=== PATIENT | male | born 1970 | race Caucasian/White ===

== ENCOUNTER 2020-03-24 03:30 | Emergency (ER) | payer BC, OTHER ==
[2020-03-24 03:36] VITALS: BP 123/79; PULSE 92
--- NOTE | 2020-03-24 04:06 | EDM.PDOC ---
ED HPI GENERAL MEDICAL PROBLEM - General Chief Complaint: General Stated Complaint: NEEDS BLOOD WORK; SEIZURE? Time Seen by Provider: 03/24/20 03:35 Source of Information: Reports: Patient, Family History Limitations: Reports: No Limitations - History of Present Illness INITIAL COMMENTS - FREE TEXT/NARRATIVE: ED ambulatory with report of seizure during sleep woke "coughing up blood. EMS called. Patient elected to come by private vehicle. No prior seizure hx. described generalized shaking. No incontinence. Seen in clinic last week diagnosed with Vertigo. No labs or imaging done at that time. no recent fever chills. No Balance difficulties, Denied any change in vision. No headaches. No weakness. some dizziness while at work for past couple weeks denied injury . denied use of alcohol or other drugs. No home medications. - Related Data Allergies Allergy/AdvReac Type Severity Reaction Status Date / Time No Known Allergies Allergy Verified 03/24/20 03:36 Home Meds: Home Meds Acetaminophen [Tylenol] 650 mg PO ATDISCHARGE PRN 10/16/16 [History] Past Medical History - Past Health History Medical/Surgical History: Denies Medical/Surgical History HEENT History: Reports: None Cardiovascular History: Reports: None Respiratory History: Reports: None Gastrointestinal History: Reports: None Genitourinary History: Reports: None Musculoskeletal History: Reports: None Neurological History: Reports: None Psychiatric History: Reports: None Endocrine/Metabolic History: Reports: None Hematologic History: Reports: None Immunologic History: Reports: None Oncologic (Cancer) History: Reports: None Dermatologic History: Reports: None - Infectious Disease History Infectious Disease History: Reports: Chicken Pox - Past Surgical History Head Surgeries/Procedures: Reports: None Social & Family History - Family History Family Medical History: Noncontributory - Tobacco Use Smoking Status *Q: Current Every Day Smoker Years of Tobacco use: 27 Packs/Tins Daily: 0.5 - Caffeine Use Caffeine Use: Reports: None - Recreational Drug Use Recreational Drug Use: No - Living Situation & Occupation Occupation: Employed ED ROS GENERAL - Review of Systems Review Of Systems: Comprehensive ROS is negative, except as noted in HPI. ED EXAM, GENERAL - Physical Exam Exam: See Below Exam Limited By: No Limitations General Appearance: Alert, No Apparent Distress Eye Exam: Bilateral Eye: EOMI, PERRL (4mm) Ears: Normal External Exam, Normal TMs Nose: Normal Inspection Throat/Mouth: Other (bite cuts to right mid tounge) Head: Atraumatic, Normocephalic Neck: Normal Inspection, Full Range of Motion. No: Lymphadenopathy (L), Lymphadenopathy (R) Respiratory/Chest: No Respiratory Distress, Lungs Clear, Normal Breath Sounds Cardiovascular: Normal Peripheral Pulses, Regular Rate, Rhythm, No Edema, No Murmur GI/Abdominal: Normal Bowel Sounds, Soft, Non-Tender Back Exam: Full Range of Motion Neurological: Alert, Oriented, CN II-XII Intact, Normal Gait, Normal Reflexes, No Motor/Sensory Deficits, Other (finger nose intact. no tremor, questioned for 's phone number, stated does not know just uses contact in phone. Initially gave first 's name but rapidly corrected himself. ). No: Sensory/Motor Deficit Psychiatric: Normal Affect, Normal Mood Skin Exam: Warm, Dry, Intact, Normal Color EKG INTERPRETATION Rhythm: NSR Course - Vital Signs Last Recorded V/S: Last Vital Signs Temp 97.4 F 03/24/20 03:33 Pulse 92 03/24/20 03:33 Resp 18 03/24/20 03:33 BP 123/79 03/24/20 03:33 Pulse Ox 97 03/24/20 03:33 - Orders/Labs/Meds Labs: Laboratory Tests 03/24/20 03/24/20 03/24/20 Range/Units 03:44 03:44 03:44 WBC 8.8 (5.0-10.0) 10^3/uL RBC 5.20 (4.6-6.2) 10^6/uL Hgb 15.5 (14.0-18.0) g/dL Hct 44.8 (40.0-54.0) % MCV 86.2 D (80-100) fL MCH 29.8 (27.0-34.0) pg MCHC 34.6 (33.0-35.0) g/dL Plt Count 185 (150-450) 10^3/uL D-Dimer, Quantitative 1060 H (0-400) ng/mL Sodium 138 (136-145) mmol/L Potassium 3.8 (3.5-5.1) mmol/L Chloride 103 (98-107) mmol/L Carbon Dioxide 26 (21-32) mmol/L Anion Gap 12.8 (7-13) mEq/L BUN 12 (7-18) mg/dL Creatinine 0.94 (0.70-1.30) mg/dL Est Cr Clr Drug Dosing 78.72 mL/min Estimated GFR (MDRD) > 60 BUN/Creatinine Ratio 12.8 (No establ ref range) Glucose 101 H (74-99) mg/dL Calcium 9.2 (8.5-10.1) mg/dL Total Bilirubin 0.3 (0.2-1.0) mg/dL AST 20 (15-37) U/L ALT 25 (16-63) U/L Alkaline Phosphatase 62 (46-116) U/L Total Protein 7.2 (6.4-8.2) g/dL Albumin 3.9 (3.4-5.0) g/dL Globulin 3.3 Albumin/Globulin Ratio 1.2 Ethyl Alcohol < 3 (0) mg/dL Meds: Medications Discontinued Medications Generic Name Dose Route Start Last Admin Trade Name Freq PRN Reason Stop Dose Admin Levetiracetam 500 mg/ Sodium 105 mls @ 400 mls/hr 03/24/20 04:52 03/24/20 05:01 Chloride IV 03/24/20 05:06 400 mls/hr ONETIME ONE Administration - Re-Assessments/Exams Free Text/Narrative Re-Assessment/Exam: TC Dr Chairez. Froil[place] Patient to be assessed in ed. Dr Almaguer accepting pt. Tx VMF rotor. Inclement weather, Rotor returned to hospital. Awaiting Fixed wing transfer. Departure - Departure Time of Disposition: 05:29 Disposition: DC/Tfer to Acute Hospital 02 Condition: Undetermined Clinical Impression: Brain mass, Seizure - Discharge Information *PRESCRIPTION DRUG MONITORING PROGRAM REVIEWED*: No *COPY OF PRESCRIPTION DRUG MONITORING REPORT IN PATIENT URIEL: No Forms: ED Department Discharge Sepsis Event Note (ED) - Evaluation Sepsis Screening Result: No Definite Risk
--- NOTE | 2020-03-24 04:34 | CT ---
PROCEDURE INFORMATION: Exam: CT Head Without Contrast Exam date and time: 03/24/2020 4:13 AM Age: 50 years old Clinical indication: Other: Possible seizure during sleep TECHNIQUE: Imaging protocol: Computed tomography of the head without contrast. Radiation optimization: All CT scans at this facility use at least one of these dose optimization techniques: automated exposure control; mA and/or kV adjustment per patient size (includes targeted exams where dose is matched to clinical indication); or iterative reconstruction. COMPARISON: No relevant prior studies available. FINDINGS: Brain: There is a heterogeneous, predominantly hyperdense supratentorial intra-axial mass measuring approximately 7 x 5 cm transverse x 6.5 cm cc height with epicenter in the medial left frontal lobe. There are regions of hypodensity within the superior aspect of the mass suggesting areas of necrosis or cystic change. There is subfalcine extension to the right of midline appearing to track along the corpus callosum.. There is marked surrounding vasogenic edema. Basal cisterns appear patent. No cerebral hemorrhage. No cerebral extra-axial fluid collection. Ventricles: Marked compression of the left lateral ventricle and upper 3rd ventricle. The right lateral ventricle is rightward shifted and dilated, likely obstructed. There is approximately 1 cm of left to right midline shift as measured at the septum pellucidum Bones/joints: The visualized bones are intact without fracture or focal osseous lesion. Sinuses: The visualized sinuses are well aerated and clear. Mastoid air cells: The mastoids are well aerated and clear. Vasculature: Vascular calcifications noted. Soft tissues: The visualized soft tissues appear unremarkable. IMPRESSION: Large, complex intra-axial supratentorial mass with epicenter in the medial left frontal lobe with subfalcine extension to the right of midline . Marked surrounding vasogenic edema and mass effect associated. Compression of the left lateral and 3rd ventricles with probable obstruction of the right lateral ventricle. GBM is suspected. Lymphoma. Metastases or infection felt less likely. Emergent neural surgical consultation recommended. THIS REPORT CONTAINS FINDINGS THAT MAY BE CRITICAL TO PATIENT CARE. The findings were verbally communicated via telephone conference with JUAN FRANCISCO SHARMA at 4:33 AM CDT on 03/24/2020. The findings were acknowledged and understood.
[2020-03-24 04:38] LABS: ANION GAP 12.8 mEq/L (7-13); CHLORIDE,CL 103 mmol/L (98-107); SODIUM,NA 138 mmol/L (136-145)
[2020-03-24] MEDS ORDERED: levETIRAcetam 500 MG in Sodium Chloride 0.9% 100 ML IV ONE (04:52)
== END 2020-03-24 05:30 ==
LOC: DL.ED 03:30
DX: G93.89 Other specified disorders of brain (principal); R56.9 Unspecified convulsions; F17.210 Nicotine dependence, cigarettes, uncomplicated
CPT/HCPCS: 36415; 70450; 80053; 80307; 85027; 85379; 93005; 96365; 99285; J1953; J7050